=== PATIENT | male | born 1945 | race Caucasian/White ===

== ENCOUNTER 2019-02-10 05:15 | Observation (INO) | payer MEDICARE, BC ==
[~2019-02-10 05:15] MED LIST: Ondansetron ODT 4 MG TAB SL PRN; Ondansetron PF 4 MG/2 ML Vial IVP PRN
[2019-02-10] MEDS ORDERED: Ondansetron PF 4 MG/2 ML Vial ONE (07:02)
[2019-02-10 08:53] VITALS: BMI 29.6
[2019-02-10] MEDS ORDERED: Piperacillin/Tazobactam 3.375 GM in Sodium Chloride 0.9% 100 ML IVPB SCH (09:00)
[2019-02-10] MEDS ORDERED: Lactated Ringer's 1,000 ML IV SCH (09:15)
[2019-02-10] MEDS: Morphine 4 MG/ML VIAL SLOW IVP PRN ×2 (09:21→12:02)
[2019-02-10] MEDS ORDERED: Ketorolac Tromethamine 30 MG/ML VIAL IVP PRN (09:59)
--- NOTE | 2019-02-10 14:59 | HP ---
CHIEF COMPLAINT: Lower abdominal pain. HISTORY OF PRESENT ILLNESS: The patient is a pleasant 73-year-old white male. He had an onset of lower abdominal pain about 1 p.m. yesterday. He presented to the emergency room in [place], where he underwent initial evaluation. At some point, he was felt to be safe for discharge home and was discharged home at about 11 o'clock, I believe. He then returned to the emergency room later last night, at which point, a CT scan was done. CT scan showed evidence of acute appendicitis. His white blood cell count initially had been 12 and by later this morning, it was up to 19. He notes that he feels tired and sluggish and continues to have lower abdominal pain. He had one episode of vomiting in the emergency room last night. PAST MEDICAL HISTORY: Significant for hyperlipidemia, diabetes mellitus, gastroesophageal reflux disease. PAST SURGICAL HISTORY: He has had right knee surgery and left foot surgery, both of which were quite a while ago. ALLERGIES: TO CODEINE, SULFA, AND PREDNISONE (WHICH CAUSES HIS BLOOD SUGARS TO ELEVATE). CURRENT MEDICATIONS: Welchol, Janumet, Lovaza, clonazepam, aspirin, pantoprazole. PRIMARY CARE PHYSICIAN: Dr. Neel Shafer. PERSONAL AND SOCIAL HISTORY: He is with two children, both of whom are present at bedside. He does not smoke or does not drink alcohol. 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 REVIEW OF SYSTEMS: Ten-system review is obtained, is otherwise unremarkable. FAMILY HISTORY: Noncontributory. PHYSICAL EXAMINATION: VITAL SIGNS: He is afebrile. Pulse 85, blood pressure 181/86. GENERAL: He is a well-developed, well-nourished, pleasant male, resting in bed. He appears lethargic, but does not appear in any acute distress. He is alert and oriented x3, and cooperative. HEAD, EYES, EARS, NOSE, AND THROAT: Unremarkable. NECK: Supple without mass or tenderness. LUNGS: Clear to auscultation throughout. CARDIAC: Regular rate and rhythm without murmur. ABDOMEN: Soft. He has normoactive bowel sounds. He is nontender in any area other than on the right side of his abdomen. He has mild discomfort in the right upper quadrant and focal tenderness with guarding in the right lower quadrant. EXTREMITIES: Unremarkable. LABORATORY DATA: As mentioned, his white blood cell count is elevated at 19. ASSESSMENT: The patient with acute appendicitis seen on CT scan and with the history and physical examination to corroborate this. I would recommend laparoscopic appendectomy. I have discussed the operation in detail with the patient as well as potential risks. He understands and agrees to proceed with surgery at this time. Job ID: [id number]
[2019-02-10] MEDS ORDERED: Bupivacaine/Epinephrine 0.25% 30 ML VIAL ONE (18:14)
[2019-02-10] MEDS ORDERED: Fentanyl 100 MCG/2 ML VIAL ONE ×2 (18:27→19:51)
[2019-02-10] MEDS ORDERED: Promethazine HCl 25 MG/ML VIAL SLOW IVP PRN (19:51)
[2019-02-10] MEDS ORDERED: Promethazine HCl 25 MG/ML VIAL IM PRN (19:51)
[2019-02-10] MEDS ORDERED: Ondansetron HCl/PF 4 MG/2 ML Vial IVP PRN (19:51)
[2019-02-10] MEDS ORDERED: Ketorolac Tromethamine 30 MG/ML VIAL ONE (19:58)
[2019-02-10 21:05] VITALS: BP 156/70; TEMP 98.1
--- NOTE | 2019-02-11 10:20 | OP ---
DATE OF PROCEDURE: 02/10/2019 PREOPERATIVE DIAGNOSIS: Acute appendicitis. POSTOPERATIVE DIAGNOSIS: Acute appendicitis. OPERATION PERFORMED: Laparoscopic appendectomy. ANESTHESIA: General endotracheal. FINDINGS: The patient had obvious acute appendicitis. He was also noted to have an obvious right inguinal hernia. DESCRIPTION OF OPERATION: Informed consent was obtained. The patient was taken to the operating room, where general endotracheal anesthesia was obtained with the patient in supine position. Abdomen was prepped with ChloraPrep and draped in sterile fashion. Local anesthetic was infiltrated using 0.25% Marcaine with epinephrine. A 5 mm infraumbilical incision was created, through which a Veress needle was passed into the peritoneal cavity. Pneumoperitoneum was established using carbon dioxide up to pressure of 15 mmHg. A 5 mm trocar port was passed through the same incision and laparoscopic camera was passed this port. Under direct vision, two additional ports were placed including a 5 mm left lower quadrant port and a 12 mm suprapubic port. Attention was turned to the right lower quadrant. The patient had obvious, advanced, but non-perforated appendicitis. The appendix was carefully mobilized from surrounding tissue. The mesoappendix was dissected using electrocautery down to the base of the appendix. The appendix was skeletonized at its base and divided between two separate PDS Endoloop ties. The appendiceal stump was cauterized. The appendix was placed in a specimen retrieval sac. The appendix was then removed through the suprapubic port site in a piecemeal fashion. The fascia was closed with 0 Vicryl suture using a GraNee needle. The right lower quadrant was thoroughly irrigated. All irrigant was aspirated. During the course of inspection, it was noted that the patient had a right inguinal hernia without evidence of left inguinal hernia. All ports and instruments were removed under direct vision. Pneumoperitoneum was carefully evacuated. 0.25% Marcaine with epinephrine was infiltrated at each port site. Skin edges were approximated with 4-0 Monocryl subcuticular suture. Dermabond was placed externally. There were no complications. The patient tolerated the procedure well and was taken to recovery room in stable condition. Job ID: [id number]
== END 2019-02-10 21:50 | disposition home or self-care (01) ==
LOC: ERS 05:15 → ERHOLD 06:04 → 3SE 08:21
PROVIDERS: ADMIT Specialist; ATTEND Specialist
PROC: 0DTJ4ZZ Resection of Appendix, Percutaneous Endoscopic Approach (ICD-10-PCS; principal; 2019-02-10)
DX: K35.80 Unspecified acute appendicitis (principal); K40.90 Unilateral inguinal hernia, without obstruction or gangrene, not specified as recurrent; E11.9 Type 2 diabetes mellitus without complications; E78.5 Hyperlipidemia, unspecified; K21.9 Gastro-esophageal reflux disease without esophagitis; Z79.82 Long term (current) use of aspirin; Z79.899 Other long term (current) drug therapy; Z88.2 Allergy status to sulfonamides; Z88.6 Allergy status to analgesic agent; Z88.8 Allergy status to other drugs, medicaments and biological substances
CPT/HCPCS: 44970; 88304; 96361; 96374; 99284; G0378 ×2; J0131; J1885; J2270; J2405; J2543; J3010; J3490

== ENCOUNTER 2019-07-21 14:45 | Outpatient (CLI) | payer MEDICARE, BC ==
--- NOTE | 2019-07-21 15:30 | BD ---
EXAM: DEXA bone density examination HISTORY: 73-year-old male with osteopenia COMPARISON: None FINDINGS: L1--bone mineral density 0.919 g/sq cm; T score -1.4 L2--bone mineral density 1.017 g/sq cm; T score -0.7 L3--bone mineral density 1.046 g/sq cm; T score -0.5 L4--bone mineral density 1.051 g/sq cm; T score -0.4 Total L1-L4--bone mineral density 1.014 g/sq cm; T score -0.7 Left femoral neck--bone mineral density0.895; T score -0.3 Total proximal left femur--bone mineral density 1.132; T score 0.7 IMPRESSION: Normal bone density
--- NOTE | 2019-07-21 15:44 | RAD ---
EXAM: 3 views of the left shoulder HISTORY: Shoulder pain COMPARISON: None FINDINGS: There is no evidence of acute fracture or dislocation. No degenerative changes are present. No soft tissue swelling is seen. The visualized thorax is unremarkable. IMPRESSION: No evidence of acute osseous abnormality.
--- NOTE | 2019-07-21 15:54 | RAD ---
Lumbar spine 4 views: 07/21/2019 COMPARISON: None HISTORY: Low back pain, stiffness FINDINGS: Lumbar pedicles appear intact on frontal imaging. There is lower lumbar spine facet hypertr ophy, most prominent on the right at L5-S1. The oblique imaging demonstrates no evidence for a pars defect on either side at any level. At L1-2 there is mild disc space narrowing and anterior osteophyte formation. At L3-4 there is disc space narrowing with degenerative endplate change and anterior osteophyte forma tion. No acute osseous abnormality noted. IMPRESSION: Lumbar spine degenerative change as detailed above.
== END 2019-07-21 14:46 | disposition home or self-care (01) ==
LOC: BICMAMMO 14:45
PROVIDERS: ATTEND Internal Medicine Rheumatology
DX: M81.0 Age-related osteoporosis without current pathological fracture (principal); M54.5 Low back pain; M25.512 Pain in left shoulder; M47.816 Spondylosis without myelopathy or radiculopathy, lumbar region
CPT/HCPCS: 72110; 77080

== ENCOUNTER 2024-10-30 08:45 | Outpatient (CLI) | payer MEDICARE | END 2024-10-30 08:46 | disposition home or self-care (01) | LOC: PET 08:45 | PROVIDERS: ATTEND Internal Medicine | DX: C16.0 Malignant neoplasm of cardia (principal) | CPT/HCPCS: 78815; A9552 ==

== ENCOUNTER 2025-05-14 15:39 | Observation (INO) | payer OTHER ==
[2025-05-14 16:04] VITALS: BMI 28.1
[2025-05-14] MEDS ORDERED: Ondansetron PF 4 MG/2 ML Vial IVP PRN (18:39)
[2025-05-14] MEDS ORDERED: Acetaminophen 325 MG TAB PO PRN (18:39)
[2025-05-14] MEDS ORDERED: Dextrose 50% Abboject 50 ML SYRINGE SLOW IVP PRN (18:42)
[2025-05-14] MEDS ORDERED: Glucagon 1 MG/ML KIT IM PRN (18:42)
[2025-05-14] MEDS ORDERED: hydrALAZINE 20 MG/ML VIAL SLOW IVP PRN (18:43)
[2025-05-14] MEDS: PNEUMOC 20-VAL CONJ-DIP CRM/PF 0.5 ML SYRINGE IM ONE (19:43)
[2025-05-14] MEDS: Famotidine/PF 20 mg/2ml Vial SLOW IVP SCH (20:56)
[2025-05-14] MEDS: clonazePAM 1 MG TAB PO SCH (20:57)
[2025-05-14] MEDS: Mirtazapine 15 MG TAB PO SCH (21:24)
[2025-05-14] MEDS: MIRTAZAPINE 30 MG PO SCH (21:46)
[2025-05-15 04:28] LABS: #Basophils 0.07 10x3/uL (0.0-0.2); #Eosinophils 0.39 10x3/uL (0.0-0.7); #Monocytes 0.49 10x3/uL (0.11-0.59); #Neutrophils 2.75 10x3/uL (1.40-6.50); %Basophils 1.6 % (0.0-1.0); %Eosinophils 9.0 % (0.0-10.0); %Lymphocytes 13.9 % (21.0-51.0); %Monocytes 11.4 % (0.0-10.0); %Neutrophils 63.9 % (42.0-75.0); Hematocrit 30.4 % (42.0-52.0); Hemoglobin 10.5 g/dL (14.0-18.0); Mean Corpuscular Hemoglobin 33.1 pg (27.0-31.0); Mean Corpuscular Volume 95.9 fL (78.0-98.0); Platelet Count 144 10x3/uL (130-400); Red Blood Cell (RBC) Count 3.17 mill/uL (4.70-6.10); White Blood Cell (WBC) Count 4.31 10x3/uL (4.8-10.8)
[2025-05-15 04:35] LABS: ALT (SGPT) 10 U/L (Less than 45); AST (SGOT) 17 U/L (11-34); Albumin 3.3 g/dL (3.1-4.5); Alkaline Phosphatase 76 U/L (40-110); Anion Gap 10 mmol/L (10-20); BUN (Urea Nitrogen) 14 mg/dL (8.4-25.7); Bilirubin, Total 0.6 mg/dL (0.3-1.2); Calc. Creatinine Clearance 73 mL/min (70-130); Calcium 8.8 mg/dL (7.8-10.44); Carbon Dioxide 27 mmol/L (23-31); Cardiac Risk 4.4 (Less than 4.5); Chloride 106 mmol/L (98-107); Cholesterol 151 mg/dl (< 200 Desired); Globulin 2.8 g/dL (2.4-3.5); Glucose 120 mg/dL (83-110); HDL Cholesterol 34 mg/dL (>60 Neg Risk); LDL Cholesterol, Calculated 102 mg/dL; Potassium 3.9 mmol/L (3.5-5.1); Sodium 139 mmol/L (136-145); Triglycerides 75 mg/dL (Less than 150)
[2025-05-15] MEDS: Enoxaparin 40 MG (0.4 mL) SYRINGE SC SCH (08:28)
[2025-05-15] MEDS: Aspirin 81 mg Enteric Coated Tablet PO SCH (08:29)
[2025-05-15] MEDS ORDERED: Pantoprazole 40 MG GRANULES PACKET PO SCH (09:00)
[2025-05-15] MEDS: Pantoprazole 40 MG DR.TAB PO SCH (09:41)
[2025-05-15 11:26] VITALS: BP 126/61; TEMP 97.4
[2025-05-15] MEDS ORDERED: Mirtazapine 15 MG TAB PO SCH (21:00)
== END 2025-05-15 15:06 | disposition home or self-care (01) ==
LOC: ERS 15:39 → PCU 16:03 → INTOOBSV 16:03 → UNDOADMOB 16:03 → UNDODISOB 05-15 15:06
PROVIDERS: ADMIT Internal Medicine; ATTEND Internal Medicine
PROC: B24BZZZ Ultrasonography of Heart with Aorta (ICD-10-PCS; principal; 2025-05-15)
DX: R20.0 Anesthesia of skin (principal); D64.9 Anemia, unspecified; I10 Essential (primary) hypertension; I65.21 Occlusion and stenosis of right carotid artery; E11.9 Type 2 diabetes mellitus without complications; E78.5 Hyperlipidemia, unspecified; F32.A Depression, unspecified; J44.9 Chronic obstructive pulmonary disease, unspecified; Z86.711 Personal history of pulmonary embolism; Z85.028 Personal history of other malignant neoplasm of stomach; Z88.5 Allergy status to narcotic agent; Z88.2 Allergy status to sulfonamides; Z88.8 Allergy status to other drugs, medicaments and biological substances; Z79.82 Long term (current) use of aspirin; Z79.4 Long term (current) use of insulin; Z79.899 Other long term (current) drug therapy
CPT/HCPCS: 70551; 80053; 80061; 82962 ×2; 85025; 93306; 96372; 96374; 96375; 96376; 97116; G0378 ×3; J1308 ×2; J1650; J1815; J2060; 36415; 36416